=== PATIENT | male | born 1955 | race Two or more races ===

== ENCOUNTER 2020-08-03 17:48 | Emergency (ER) | payer BC ==
[~2020-08-03] VITALS: Ht 157.5 cm; Wt 73.0 kg
--- NOTE | 2020-08-03 17:55 | NUR ---
PT BIB FAMILY, AMBULATORY TO ER BED 06 C/O SHORTNESS OF BREATH, ON AND OFF FOR 1 WEEK PT ALSO ENDORSES THOAT DISCOMFORT AND COUGH. PT IS [employer]. DENIES ANY SICK CONTACTS. NO COVID HISTORY. GEORGIAN SPEAKING. AWAITING MD FERNANDEZ.
--- NOTE | 2020-08-03 17:57 | NUR ---
DR ALEMAN AT BEDSIDE FOR EVAL
[2020-08-03] MEDS ORDERED: LANS15CA18 PO (18:08)
[2020-08-03] MEDS ORDERED: TAMS-12 PO (18:08)
[2020-08-03] MEDS ORDERED: LORA-258 PO (18:08)
[2020-08-03] MEDS ORDERED: AMLO-212 PO (18:08)
[2020-08-03 18:26] LABS: BASOPHILS % (AUTO) 0.3 % (0.0-2.0); HEMATOCRIT 36 % (39-51); HEMOGLOBIN 12.2 g/dL (13.5-17.5); LYMPHOCYTES # (AUTO) 3.1 /CMM (0.8-4.8); LYMPHOCYTES % (AUTO) 24.3 % (20.0-44.0); MEAN CORPUSCULAR HGB CONC 34 g/dl (31.0-36.0); MEAN CORPUSCULAR VOLUME 88 fL (80-96); MONOCYTES # (AUTO) 0.7 /CMM (0.1-1.30); MONOCYTES % (AUTO) 5.8 % (2.0-12.0); NEUTROPHILS # (AUTO) 8.7 /CMM (1.8-8.9); NEUTROPHILS % (AUTO) 68.6 % (43.0-81.0); PLATELET COUNT (AUTO) 676 /CMM (150-450); RED BLOOD CELL COUNT(AUTO) 4.06 MIL/uL (4.5-6.0); WHITE BLOOD COUNT (AUTO) 12.7 K/uL (4.3-11.0)
[2020-08-03 18:39] LABS: CARBON DIOXIDE 21 mmol/L (21-32); CHLORIDE 89 mmol/L (98-107); CREATININE 1.1 mg/dL (0.6-1.3); POTASSIUM 4.4 mmol/L (3.5-5.1); SODIUM SERUM 122 mmol/L (136-145); UREA NITROGEN, BLOOD 29 mg/dL (7-18)
[2020-08-03 18:40] LABS: GLUCOSE 456 mg/dL (74-106)
--- NOTE | 2020-08-03 18:42 | NUR ---
URINE COLLECTED AND TAKEN TO THE LAB.
[2020-08-03 18:52] LABS: ALANINE AMINOTRANSFERASE 131 U/L (12-78); ALBUMIN 2.9 g/dL (3.4-5.0); ALKALINE PHOSPHATASE 72 U/L (46-116); B-TYPE NATRIURETIC PEPTIDE 28 PG/ML (0-125); BILIRUBIN,DIRECT 0.1 mg/dL (0.0-0.2); BILIRUBIN,TOTAL 0.3 mg/dL (0.2-1.0); TOTAL PROTEIN, SERUM 7.8 g/dL (6.4-8.2)
[2020-08-03] MEDS ORDERED: PIPERACILLIN /TAZOBACTAM 3.375 G in IV D5W 50 ML IV ONE (19:00)
[2020-08-03] MEDS ORDERED: IV NS 0.9% 1,000 ML BAG IV ONE (19:00)
[2020-08-03] MEDS ORDERED: VANCOMYCIN 1 GM in IV D5W 250 ML IV ONE (19:00)
--- NOTE | 2020-08-03 19:05 | NUR ---
BLOOD FOR BLOOD CULTURES OBTAINED PRIOR START OF ANTIBIOTICS.
--- NOTE | 2020-08-03 19:06 | NUR ---
BLOOD FOR BLOOD CULTURES OBTAINED PRIOR START OF ANTIBIOTICS.
[2020-08-03 19:07] LABS: BILIRUBIN,URINE NEGATIVE (NEGATIVE); COLOR,URINE YELLOW (YELLOW); LEUKOCYTE ESTERASE ,URINE NEGATIVE (NEGATIVE); NITRITE, URINE NEGATIVE (NEGATIVE); PH,URINE 5.5 (5.0-8.0); PROTEIN,URINE NEGATIVE (NEGATIVE); UGLUCOSE >=1000 mg/dL (NEGATIVE); UROBILINOGEN,URINE 0.2 EU/dL (0.2)
[2020-08-03 19:19] LABS: BACTERIA,URINE None seen /HPF (None Seen); HYALINE CASTS, URINE Few /LPF (None Seen); RBC,URINE 0-2 /HPF (0-2); SQUAMOUS EPITHELIAL CELL,UR 0-2 /HPF (None Seen); WBC,URINE 0-2 /HPF (0-3)
[2020-08-03 19:28] LABS: ASPARTATE AMINOTRANSFERASE 52 U/L (15-37)
--- NOTE | 2020-08-03 19:28 | NUR ---
COVID PCR COLLECTED AND SENT TO THE LAB.
[2020-08-03] MEDS ORDERED: INSULIN REGULAR, HUMAN 100 UNIT/ML 10 ML VIAL SQ ONE (19:30)
[2020-08-03] MEDS ORDERED: INSULIN REGULAR, HUMAN 100 UNIT/ML 10 ML VIAL ONE (19:37)
[2020-08-03 20:28] LABS: BAND % (MANUAL) 1 % (0.0-5.0); LYMPHOCYTES % (MANUAL) 26 % (16-48); MONOCYTES % (MANUAL) 4 % (0-11.0); MYELOCYTES % 2 % (0-0); NEUTROPHILS % (MANUAL) 66 (42-76); REACTIVE LYMPHOCYTES 1 % (0-0)
[2020-08-03] MEDS ORDERED: PRED20TA PO (20:41)
[2020-08-03] MEDS ORDERED: AZIT250T13 PO (20:41)
[2020-08-03] MEDS ORDERED: METF-440 PO (20:41)
--- NOTE | 2020-08-03 21:36 | NUR ---
IV removed. Catheter intact and site benign. Pressure and 4x4 applied to site. No bleeding noted. Patient discharged to home in stable condition. Written and verbal after care instructions given. Patient verbalizes understanding of instruction.
--- NOTE | 2020-08-03 21:37 | NUR ---
PATIENT IS PICKED UP BY SON.
[2020-08-03 22:37] VITALS: BP 139/83
== END 2020-08-03 21:36 | disposition home or self-care (01) ==
LOC: ER 17:56
DX: J18.9 Pneumonia, unspecified organism (principal); Z20.822 Contact with and (suspected) exposure to COVID-19; E11.65 Type 2 diabetes mellitus with hyperglycemia; I10 Essential (primary) hypertension; Z79.899 Other long term (current) drug therapy
CPT/HCPCS: 36415; 71045; 80048; 80076; 81001; 82962; 83605; 83880; 84484; 85007; 85025; 85730; 87040 ×2; 87081; 87426; 93005; 96365; 96368; 96372; 99285; C9803 ×2; J1815; J2543; J3370; J7030; J7060; U0003